=== PATIENT | female | born 1980 | race Caucasian/White ===

== ENCOUNTER 2017-09-24 14:54 | Emergency (ER) | payer OTHER ==
[2017-09-24] MEDS ORDERED: Ondansetron HCl/PF 4 MG/2 ML Vial ONE (15:08)
--- NOTE | 2017-09-24 16:05 | RAD ---
LEFT TIBIA AND FIBULA TWO VIEWS: History: Fall with pain. FINDINGS/IMPRESSION: There is a comminuted transverse to slightly obliquely oriented fractures of the distal tibia and fib ular shafts. There is some minimal posterior angulation to the distal portions of the fracture. The f ractures are approximately one shaft width posteriorly displaced. There are some distal tibia and fib ular fractures. POS: [facility]
[2017-09-24] MEDS ORDERED: Lorazepam 2 MG/ML VIAL ONE ×2 (16:12→17:35)
[2017-09-24] MEDS ORDERED: traMADol HCl 50 MG TAB PO PRN (18:35)
--- NOTE | 2017-09-25 02:04 | HP ---
DATE OF ADMISSION: 09/24/2017 ADMITTING PHYSICIAN: Nolan Velez MD CONSULTING PHYSICIAN: Alfredito Dick MD, Orthopedics HISTORY OF PRESENT ILLNESS: Ms. Chaves is a 36-year-old female who presented to [facility] after a fall while in a roller derby. Apparently, her legs got crossed and one went unde r her and she fell. Workup in the ED identified a left tibia fibula fracture. She denied LOC and de nies any other pain. She was wearing a protective gear including a helmet. Pain is exacerbated by m ovement. The pain has been relieved with IV fentanyl. Trauma service has been consulted for admissi on and management. Dr. Dick, Orthopedics, has been consulted for management of fracture. 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 PAST SURGICAL HISTORY: Thyroidectomy and septoplasty. SOCIAL HISTORY: Patient lives at home with . Denies alcohol, tobacco, or drug use. CURRENT MEDICATIONS: Synthroid 175 mcg oral daily. LABORATORY DATA: Pending. DIAGNOSTIC IMAGING: Comminuted fracture, left distal tibia and fibula. REVIEW OF SYSTEMS: Constitutional: The patient denies fever, chills, or general malaise. HEENT: T he patient denies complaint. Cardiovascular: The patient denies chest pain or palpitations. Respir atory: The patient denies shortness of breath, cough, or wheezing. Abdomen: The patient denies ary sea, vomiting, diarrhea, constipation, or abdominal pain. Extremities: Complains of pain, left lowe r extremity at distal tibia and fibula area, pain with movement of foot, pain with movement of leg. Skin: The patient denies rashes or other trauma. Psychiatric: Patient denies anxiety or depression . Neurologic: The patient denies focal weakness, seizures, or dizziness. PHYSICAL EXAMINATION: VITAL SIGNS: Blood pressure 98/58, pulse 95, respirations 14, O2 sat 97% on room air. CONSTITUTIONAL: A well-developed, well-nourished female lying on bed, in no acute distress. Left le g in a splint. HEENT: Atraumatic, normocephalic. NECK: Trachea midline. No pain to neck. PULMONARY: Bilateral breath sounds clear. No respiratory distress. CARDIOVASCULAR: Heart sounds normal. Regular rate and rhythm. ABDOMEN: Soft, nontender, nondistended. Pelvis is stable. Bilateral upper extremities without trau ma. Right lower extremity without trauma. Left lower extremity in splint. All extremities were rashel rovascularly intact. Cap refill brisk 2+ pulses. NEUROLOGIC: GCS 15. Awake, alert, and oriented x3. ASSESSMENT: 1. Status post fall from roller skates. 2. Left comminuted distal tibia-fibula fracture. 3. Acute traumatic pain. PLAN: 1. Admit to surgical floor. 2. Regular diet. 3. N.p.o. after midnight. 4. At midnight, we will start IV fluids. 5. [place] for analgesia with morphine for breakthrough pain. 6. At the time of this dictation, patient is currently awaiting approval from the [place], to be admitted to the hospital. It is possible that she will be transferred to the [facility]. There is ongoing communication via the transfer center regarding this. If the patient is to stay, she will be n.p.o. after midnight and Dr. Dick who plans on taking her to the operating room tomorrow for fixation of fracture. Patient was reviewed with Dr. Velez who agrees with the plan. Ruthy Good, nurse practitioner dictating history and physical for Nolan Velez MD.
== END 2017-09-24 21:13 ==
LOC: ERS 14:54
DX: S82.302A Unspecified fracture of lower end of left tibia, initial encounter for closed fracture (principal); S82.832A Other fracture of upper and lower end of left fibula, initial encounter for closed fracture; Y93.51 Activity, roller skating (inline) and skateboarding; E03.9 Hypothyroidism, unspecified; E11.9 Type 2 diabetes mellitus without complications; Z79.899 Other long term (current) drug therapy; W18.30XA Fall on same level, unspecified, initial encounter
CPT/HCPCS: 29105; 96361; 96374; 96375; 96376; 99284; G0390; J2060; J2270; J2405